=== PATIENT | female | born 1985 | race Caucasian/White ===

== ENCOUNTER → 2018-06-30 | Outpatient (CLI) | payer BC ==
[~2018-06-30] MED LIST: ACET-789 PO; IBUP-1773 PO
--- NOTE | 2018-06-30 10:38 | Diagnostic Imaging Report ---
PROCEDURE: US Gallbladder. TECHNIQUE: Multiple real-time grayscale images were obtained over the right upper quadrant in various projections. INDICATION: Right upper quadrant pain and nausea. FINDINGS: The liver is normal in size at 13 cm. There is a circumscribed hyperechoic mass in the right lobe of the liver measuring 18 mm, suggestive of a hemangioma. The portal vein is patent and shows normal direction of flow. Gallbladder is without stones or sludge. No wall thickening or biliary duct dilatation is seen. The visualized pancreas is unremarkable. Right kidney is unremarkable. No stones or hydronephrosis is seen. There is no ascites. IMPRESSION: 1. No evidence of cholelithiasis or acute cholecystitis. 2. 18 mm hyperechoic mass in the right lobe of the liver, most suggestive of a hemangioma. Followup to confirm stability could be performed. Dictated by: Dictated on workstation # [id number]
== END ==
LOC: RAD 08:20
PROVIDERS: ATTEND Surgery
DX: R16.0 Hepatomegaly, not elsewhere classified (principal); R10.11 Right upper quadrant pain; R11.2 Nausea with vomiting, unspecified
CPT/HCPCS: 76705

== ENCOUNTER → 2018-07-10 | Outpatient (CLI) | payer BC ==
[~2018-07-10] MED LIST changes: +CATHETER FLUSH 10 ML SYR IV PRN
--- NOTE | 2018-07-10 12:32 | Diagnostic Imaging Report ---
INDICATION: Right upper quadrant pain with nausea and vomiting. TECHNIQUE: Patient was administered 5.4 mCi of technetium-99m Choletec, and imaging over the abdomen was performed. At 45 minutes, patient ingested 8 ounces of Ensure, and gallbladder ejection fraction was calculated. FINDINGS: Normal homogeneous uptake of activity throughout the liver is seen. There is prompt excretion of activity into the common duct and passage into the small bowel. Normal passage of activity into the gallbladder is also noted. Gallbladder ejection fraction is slightly low at 32%. Normal values are 33% or greater. IMPRESSION: 1. No evidence of cystic duct or common bile duct obstruction. 2. Slightly low gallbladder ejection fraction of 32%. Dictated by: Dictated on workstation # [id number]
== END ==
LOC: CARD 09:21
PROVIDERS: ATTEND Surgery
DX: R10.11 Right upper quadrant pain (principal); R11.2 Nausea with vomiting, unspecified
CPT/HCPCS: 78227

== ENCOUNTER 2018-07-26 05:48 | Outpatient (CLI) | payer BC ==
[~2018-07-26] VITALS: Ht 154.9 cm; Wt 54.4 kg
[~2018-07-26 05:48] MED LIST changes: -CATHETER FLUSH 10 ML SYR IV PRN
[2018-07-26] MEDS ORDERED: PANT40TA2 PO (11:38)
== END 2018-07-26 11:42 | disposition home or self-care (01) ==
LOC: PREOP 05:48
PROVIDERS: ATTEND Surgery
DX: Z01.818 Encounter for other preprocedural examination (principal)

== ENCOUNTER 2018-07-28 06:52 | Day surgery (SDC) | payer BC ==
[~2018-07-28] VITALS: Ht 154.9 cm; Wt 54.4 kg
[2018-07-28] VITALS (11 sets, daily range): BP systolic 88–124; BP diastolic 51–89
[~2018-07-28 06:52] MED LIST changes: +PANT40TA2 PO
--- OUTSIDE RECORDS SUMMARY | 2018-07-28 06:59 | XMS REPORT | CCD ---
Author Author Michelle Camara Organization Linda Corado MD, [facility] Address [address] [place] [address] Phone Care Team Providers Care Vat House Supervisor Name Role Phone PP Unavailable CCM Unavailable Summary Purpose Interface Exchange Insurance Providers Payer name Policy type / Coverage type Covered green party ID Effective Begin Date Effective End Date Blue Cross Blue Shield [facility] Blue Cross/Blue Shield [id number] 2017 Unknown Family history Father Diagnosis Age At Onset Diabetes mellitus Type 2 Unknown Hypertension Unknown Hyperlipidemia Unknown Social History Social History Element Codes Description Effective Dates Marital status Unknown jazlyn 05/11/2017 Number of children Unknown 0 3 step kids 05/11/[address]: 940820419 Never smoker 05/11/2017 Alcohol history Unknown occasionally drinks alcohol 05/11/2017 Allergies, Adverse Reactions, Alerts Substance Reaction Codes Entered Date Inactivated Date Status Mucinex RASH RxNorm: 5032 05/11/2017 No Inactive Date Active Past Medical History Illness Codes Condition Status Onset Date Resolved Date Acute laryngopharyngitis ICD-9: 465.0 ICD-10: J06.0 Active 06/06/2018 Unknown Other allergic rhinitis ICD-9: 477.8 ICD-10: J30.89 Active 06/06/2018 Unknown Encounter for general adult medical examination with abnormal findings ICD-9: V70.0 ICD-10: Z00.01 Active 05/02/2018 Unknown Spontaneous ecchymoses ICD-9: 782.7 ICD-10: R23.3 Active 05/02/2018 Unknown Diarrhea, unspecified ICD-9: 787.91 ICD-10: R19.7 Active 05/11/2017 Unknown Gastro-esophageal reflux disease without esophagitis ICD-9: 530.81 ICD-10: K21.9 Active 05/11/2017 Unknown Problems Condition Codes Effective Dates Condition Status Acute laryngopharyngitis ICD-9: 465.0 ICD-10: J06.0 06/06/2018 Active Other allergic rhinitis ICD-9: 477.8 ICD-10: J30.89 06/06/2018 Active Encounter for general adult medical examination with abnormal findings ICD-9: V70.0 ICD-10: Z00.01 05/02/2018 Active Spontaneous ecchymoses ICD-9: 782.7 ICD-10: R23.3 05/02/2018 Active Diarrhea, unspecified ICD-9: 787.91 ICD-10: R19.7 05/11/2017 Active Gastro-esophageal reflux disease without esophagitis ICD-9: 530.81 ICD-10: K21.9 05/11/2017 Active Medications Medication Codes Instructions Start Date Stop Date Status Fill Instructions Tessalon Perles 100 mg capsule RxNorm: 462805 2 Capsule(s) PO TID as needed cough 06/07/2018 06/11/2018 Inactive Zithromax Z-Matt 250 mg tablet RxNorm: 735812 Tablet(s) PO UD No Stop Date Active Kenalog 40 mg/mL suspension for injection RxNorm: 2493051 Milliliter(s) Inj 06/06/2018 06/06/2018 Inactive Carafate 1 gram tablet RxNorm: 737931 1 Tablet(s) PO AC & HS 06/27/2018 Active Protonix 40 mg tablet,delayed release RxNorm: 076902 1 Tablet(s) PO daily 05/29/2018 08/26/2018 Active Protonix 40 mg tablet,delayed release RxNorm: 379745 1 Tablet(s) PO daily 05/29/2018 05/28/2018 Inactive Carafate 1 gram tablet RxNorm: 306831 1 Tablet(s) PO AC & HS as needed 12/26/2017 01/04/2018 Inactive Prilosec OTC 20 mg tablet,delayed release RxNorm: 775607 1 Tablet(s) PO daily 05/12/2017 05/28/2018 Inactive Carafate 1 gram tablet RxNorm: 654018 1 Tablet(s) PO AC & HS as needed 05/12/2017 05/21/2017 Inactive Carafate 1 gram tablet RxNorm: 566889 1 Tablet(s) PO AC & HS as needed 05/11/2017 05/11/2017 Inactive Medication Administered Medication Codes Instructions Start Date Status Kenalog 40 mg/mL suspension for injection RxNorm: 4487600 Milliliter 06/06/2018 No longer Active Immunizations No Immunization data Assessments Condition Codes Effective Dates Acute laryngopharyngitis ICD-10: J06.0 ICD-9: 465.0 06/06/2018 Other allergic rhinitis ICD-10: J30.89 ICD-9: 477.8 06/06/2018 Spontaneous ecchymoses ICD-10: R23.3 ICD-9: 782.7 05/02/2018 Encounter for general adult medical examination with abnormal findings ICD-10: Z00.01 ICD-9: V70.0 05/02/2018 Gastro-esophageal reflux disease without esophagitis ICD-10 : K21.9 ICD-9: 530.81 05/11/2017 Diarrhea, unspecified ICD-10: R19.7 ICD-9: 787.91 05/11/2017 Reason For Visit Reason For Visit Effective Dates Notes sinus congestion 06/06/2018 rash 05/02/2018 abdominal pain 05/11/2017 Results Observation Observation Code Item Item Code Result Date Cbc With Differential Ord2 WBC 5.31 K/ul 05/17/2018 Cbc With Differential Ord2 RBC 4.40 M/ul 05/17/2018 Cbc With Differential Ord2 HGB 14.1 g/dl 05/17/2018 Cbc With Differential Ord2 HCT 40.5 % 05/17/2018 Cbc With Differential Ord2 Neut% 59.5 % 05/17/2018 Cbc With Differential Ord2 MCV 92.0 fl 05/17/2018 Cbc With Differential Ord2 Lymph% 30.5 % 05/17/2018 Cbc With Differential Ord2 MCH 32.0 pg 05/17/2018 Cbc With Differential Ord2 Kings% 8.7 % 05/17/2018 Cbc With Differential Ord2 MCHC 34.8 pg 05/17/2018 Cbc With Differential Ord2 Eos% 0.9 % 05/17/2018 Cbc With Differential Ord2 PLT 191 K/ul 05/17/2018 Cbc With Differential Ord2 Baso% 0.4 % 05/17/2018 Cbc With Differential Ord2 RDW 12.5 % 05/17/2018 Cbc With Differential Ord2 Neut ABS# 3.16 K/ul 05/17/2018 Cbc With Differential Ord2 Lymph ABS# 1.62 K/ul 05/17/2018 Cbc With Differential Ord2 Kings ABS# 0.5 K/ul 05/17/2018 Cbc With Differential Ord2 Eos ABS# 0.1 K/ul 05/17/2018 Cbc With Differential Ord2 Baso ABS# 0.0 K/ul 05/17/2018 Tsh Ord6 TSH (3rd IS) 1.15 uIU/mL 05/02/2018 Comp Metabolic Bdf375 NA 137 mEq/L 05/02/2018 Comp Metabolic Aln932 K 4.2 mEq/L 05/02/2018 Comp Metabolic Wyn342 CL 105 mEq/L 05/02/2018 Comp Metabolic Gck586 CO2 27.0 mEq/L 05/02/2018 Comp Metabolic Fai787 ANION GAP 9 05/02/2018 Comp Metabolic Fsn801 GLUCOSE 96 mg/dL 05/02/2018 Comp Metabolic Smg338 Creat 0.6 mg/dL 05/02/2018 Comp Metabolic Vfe514 eGFR 113 ml/min/1.73m2 05/02/2018 Comp Metabolic Tgg676 BUN 8 mg/dL 05/02/2018 Comp Metabolic Vuw307 B/C Ratio 12.5 Ratio 05/02/2018 Comp Metabolic Yaf980 CALCIUM 9.3 mg/dL 05/02/2018 Comp Metabolic Tlx416 ALK PHOS 50 U/L 05/02/2018 Comp Metabolic Dtn248 AST(SGOT) 14 U/L 05/02/2018 Comp Metabolic Chu055 ALT(SGPT) 10 U/L 05/02/2018 Comp Metabolic Hgh952 BILI T 0.8 mg/dL 05/02/2018 Comp Metabolic Pub344 ALBUMIN 4.1 g/dL 05/02/2018 Comp Metabolic Vze636 TPRO 6.8 g/dL 05/02/2018 Comp Metabolic Mqo860 GLOB 2.7 g/dL 05/02/2018 Comp Metabolic Bzv086 A/G Ratio 1.5 Ratio 05/02/2018 Comp Metabolic Uvr195 Osmo 272 mOsmo 05/02/2018 Cbc With Differential Ord2 WBC 4.91 K/ul 05/02/2018 Cbc With Differential Ord2 RBC 4.24 M/ul 05/02/2018 Cbc With Differential Ord2 HGB 13.4 g/dl 05/02/2018 Cbc With Differential Ord2 HCT 38.9 % 05/02/2018 Cbc With Differential Ord2 Neut% 55.8 % 05/02/2018 Cbc With Differential Ord2 MCV 91.7 fl 05/02/2018 Cbc With Differential Ord2 Lymph% 36.7 % 05/02/2018 Cbc With Differential Ord2 MCH 31.6 pg 05/02/2018 Cbc With Differential Ord2 Kings% 6.7 % 05/02/2018 Cbc With Differential Ord2 MCHC 34.4 pg 05/02/2018 Cbc With Differential Ord2 Eos% 0.6 % 05/02/2018 Cbc With Differential Ord2 PLT 209 K/ul 05/02/2018 Cbc With Differential Ord2 Baso% 0.2 % 05/02/2018 Cbc With Differential Ord2 RDW 12.6 % 05/02/2018 Cbc With Differential Ord2 Neut ABS# 2.74 K/ul 05/02/2018 Cbc With Differential Ord2 Lymph ABS# 1.80 K/ul 05/02/2018 Cbc With Differential Ord2 Kings ABS# 0.3 K/ul 05/02/2018 Cbc With Differential Ord2 Eos ABS# 0.0 K/ul 05/02/2018 Cbc With Differential Ord2 Baso ABS# 0.0 K/ul 05/02/2018 Review of Systems System Result Effective Dates Constitutional recent illness 06/06/2018 Constitutional chills 06/06/2018 Constitutional No diaphoresis 06/06/2018 Constitutional fever 06/06/2018 Eyes No eye erythema 06/06/2018 Ears/Nose/Throat/Neck nasal allergies 02/2019 Ears/Nose/Throat/Neck nasal discharge 02/2019 Ears/Nose/Throat/Neck postnasal drip 02/2019 Ears/Nose/Throat/Neck sinus congestion Ears/Nose/Throat/Neck sore throat 2018 Cardiovascular No chest pain/pressure 02/2019 Cardiovascular No dyspnea 06/06/2018 Respiratory No chest congestion 2018 Respiratory cough 06/06/2018 Respiratory No dyspnea 06/06/2018 Gastrointestinal No constipation 2018 Gastrointestinal No diarrhea 06/06/2018 Gastrointestinal No nausea 06/06/2018 Gastrointestinal No vomiting 06/06/2018 Dermatologic No rash 06/06/2018 Neurologic No alteration of consciousness 06/06/2018 Neurologic No mental status change 2018 Constitutional No recent illness 2018 Constitutional No chills 05/02/2018 Constitutional No diaphoresis 05/02/2018 Constitutional No fever 05/02/2018 Eyes No eye erythema 05/02/2018 Ears/Nose/Throat/Neck No nasal allergies 05/02/2018 Ears/Nose/Throat/Neck No nasal discharge 05/02/2018 Cardiovascular No chest pain/pressure 07/2018 Cardiovascular No dyspnea 05/02/2018 Respiratory No chest congestion 2018 Respiratory No cough 05/02/2018 Gastrointestinal No abdominal pain 2018 Gastrointestinal No constipation 2018 Gastrointestinal No diarrhea 05/02/2018 Gastrointestinal No hematochezia 2018 Gastrointestinal No melena 05/02/2018 Gastrointestinal No nausea 05/02/2018 Gastrointestinal No vomiting 05/02/2018 Musculoskeletal No joint complaint 2018 Dermatologic No rash 05/02/2018 Neurologic No alteration of consciousness 05/02/2018 Neurologic No mental status change 2018 Constitutional No recent illness 2017 Constitutional No chills 05/11/2017 Constitutional No diaphoresis 05/11/2017 Constitutional No fever 05/11/2017 Eyes No eye erythema 05/11/2017 Ears/Nose/Throat/Neck No nasal discharge 05/11/2017 Ears/Nose/Throat/Neck No nasal allergies 05/11/2017 Cardiovascular No chest pain/pressure Cardiovascular No dyspnea 05/11/2017 Cardiovascular No edema 05/11/2017 Respiratory No cough 05/11/2017 Respiratory No chest congestion 2017 Respiratory No dyspnea 05/11/2017 Gastrointestinal abdominal pain 2017 Gastrointestinal No constipation 2017 Gastrointestinal diarrhea 05/11/2017 Gastrointestinal gastroesophageal reflux 05/11/2017 Gastrointestinal No vomiting 05/11/2017 Gastrointestinal No nausea 05/11/2017 Gastrointestinal No melena 05/11/2017 Gastrointestinal No hematochezia 2017 Musculoskeletal No joint complaint 2017 Dermatologic No rash 05/11/2017 Neurologic No alteration of consciousness 05/11/2017 Neurologic No mental status change 2017 Physical Exam Exam Name System Name Item Name Status Result Effective Dates Notes Full Exam - ENT Constitutional general appearance Overall: well nourished 06/06/2018 None Full Exam - ENT Constitutional general appearance Overall: well developed 06/06/2018 None Full Exam - ENT Constitutional general appearance Overall: in no acute distress 06/06/2018 None Full Exam - ENT Ears/Nose/Throat otoscopic exam Overall: external auditory canals normal 06/06/2018 None Full Exam - ENT Ears/Nose/Throat otoscopic exam Left tympanic membrane: air -fluid level 06/06/2018 None Full Exam - ENT Ears/Nose/Throat otoscopic exam Right tympanic membrane: air-fluid level 06/06/2018 None Full Exam - ENT Ears/Nose/Throat lips/ teeth/gingiva Overall: benign lips 06/06/2018 None Full Exam - ENT Ears/Nose/Throat oropharynx Overall: oral mucosa clear 06/06/2018 None Full Exam - ENT Ears/Nose/Throat oropharynx Posterior Pharynx: clear post nasal drainage 06/06/2018 None Full Exam - ENT Ears/Nose/Throat oropharynx Posterior Pharynx: erythema 06/06/2018 None Full Exam - ENT Respiratory inspection Overall: no retractions 06/06/2018 None Full Exam - ENT Respiratory inspection Overall: normal rate 02/2019 None Full Exam - ENT Respiratory auscultation Overall: breath sounds clear bilaterally 06/06/2018 None Full Exam - ENT Cardiovascular auscultation of heart Rate: normal rate 06/06/2018 None Full Exam - ENT Cardiovascular auscultation of heart Rhythm: regular rhythm 06/06/2018 None Full Exam - ENT Lymphatic palpation of lymph nodes Overall: anterior cervical chain benign 06/06/2018 None Full Exam - ENT Lymphatic palpation of lymph nodes Overall: posterior cervical chain benign 06/06/2018 None Full Exam - ENT Neurologic mood and affect Overall: normal mood 06/06/2018 None Full Exam - ENT Neurologic mood and affect Overall: normal affect 06/06/2018 None Full Exam - ENT Neurologic orientation Overall: oriented to person, place and time 06/06/2018 None Full Exam - General 1994 Constitutional general appearance Overall: well developed 05/02/2018 None Full Exam - General 1994 Constitutional general appearance Overall: in no acute distress 05/02/2018 None Full Exam - General 1994 Constitutional general appearance Overall: well nourished 05/02/2018 None Full Exam - General 1994 Eyes conjunctiva /eyelids Overall: conjunctiva clear 05/02/2018 None Full Exam - General 1994 Eyes conjunctiva /eyelids Overall: cornea clear 05/02/2018 None Full Exam - General 1994 Eyes conjunctiva /eyelids Overall: eyelids normal 05/02/2018 None Full Exam - General 1994 Eyes pupils and irises Overall: pupils equal, round, reactive to light and accomodation 05/02/2018 None Full Exam - General 1994 Ears/Nose/Throat otoscopic exam Overall: external auditory canals clear 05/02/2018 None Full Exam - General 1994 Ears/Nose/Throat otoscopic exam Overall: tympanic membranes clear 05/02/2018 None Full Exam - General 1994 Ears/Nose/Throat lips/teeth/gingiva Overall: benign lips 05/02/2018 None Full Exam - General 1994 Ears/Nose/Throat oral cavity/pharynx/larynx Overall: oral mucosa clear 05/02/2018 None Full Exam - General 1994 Ears/Nose/Throat oral cavity/pharynx/larynx Overall: oropharyngeal mucosa clear 05/02/2018 None Full Exam - General 1994 Respiratory auscultation Overall: breath sounds clear bilaterally 05/02/2018 None Full Exam - General 1994 Respiratory respiratory effort/rhythm Overall: no retractions 05/02/2018 None Full Exam - General 1994 Respiratory respiratory effort/rhythm Overall: normal rate 05/02/2018 None Full Exam - General 1994 Cardiovascular extremities Overall: no clubbing 05/02/2018 None Full Exam - General 1994 Cardiovascular auscultation of heart Overall: regular rate 05/02/2018 None Full Exam - General 1994 Cardiovascular auscultation of heart Overall: normal heart sounds 05/02/2018 None Full Exam - General 1994 Abdomen abdominal exam Overall: no tenderness 05/02/2018 None Full Exam - General 1994 Abdomen abdominal exam Overall: normal bowel sounds 05/02/2018 None Full Exam - General 1994 Musculoskeletal gait and station Overall: normal gait 05/02/2018 None Full Exam - General 1994 Musculoskeletal gait and station Overall: normal station 05/02/2018 None Full Exam - General 1994 Musculoskeletal head and neck Overall: head atraumatic 05/02/2018 None Full Exam - General 1994 Neurologic cranial nerves Overall: crainial nerves 2 - 12 grossly intact 05/02/2018 None Full Exam - General 1994 Psychiatric orientation/consciousness Overall: oriented to person, place and time 05/02/2018 None Full Exam - General 1994 Psychiatric mood and affect Overall: normal mood and affect 05/02/2018 None Full Exam - General 1994 Psychiatric appearance Overall: well-groomed, good eye contact 05/02/2018 None Full Exam - General 1994 Integument inspection of skin Location: left leg 05/02/2018 lateral thigh - healing ecchymosis Full Exam - General 1994 Constitutional general appearance Overall: well developed 05/11/2017 None Full Exam - General 1994 Constitutional general appearance Overall: in no acute distress 05/11/2017 None Full Exam - General 1994 Constitutional general appearance Overall: well nourished 05/11/2017 None Full Exam - General 1994 Eyes conjunctiva /eyelids Overall: conjunctiva clear 05/11/2017 None Full Exam - General 1994 Eyes conjunctiva /eyelids Overall: eyelids normal 05/11/2017 None Full Exam - General 1994 Eyes conjunctiva /eyelids Overall: cornea clear 05/11/2017 None Full Exam - General 1994 Eyes pupils and irises Overall: pupils equal, round, reactive to light and accomodation 05/11/2017 None Full Exam - General 1994 Ears/Nose/Throat otoscopic exam Overall: tympanic membranes clear 05/11/2017 None Full Exam - General 1994 Ears/Nose/Throat otoscopic exam Overall: external auditory canals clear 05/11/2017 None Full Exam - General 1994 Ears/Nose/Throat lips/teeth/gingiva Overall: benign lips 05/11/2017 None Full Exam - General 1994 Ears/Nose/Throat oral cavity/pharynx/larynx Overall: oral mucosa clear 05/11/2017 None Full Exam - General 1994 Ears/Nose/Throat oral cavity/pharynx/larynx Overall: oropharyngeal mucosa clear 05/11/2017 None Full Exam - General 1994 Respiratory respiratory effort/rhythm Overall: normal rate 05/11/2017 None Full Exam - General 1994 Respiratory respiratory effort/rhythm Overall: no retractions 05/11/2017 None Full Exam - General 1994 Respiratory auscultation Overall: breath sounds clear bilaterally 05/11/2017 None Full Exam - General 1994 Cardiovascular auscultation of heart Overall: regular rate 05/11/2017 None Full Exam - General 1994 Cardiovascular auscultation of heart Overall: normal heart sounds 05/11/2017 None Full Exam - General 1994 Cardiovascular extremities Overall: no clubbing 05/11/2017 None Full Exam - General 1994 Abdomen abdominal exam Overall: normal bowel sounds 05/11/2017 None Full Exam - General 1994 Abdomen abdominal exam Epigastric: tender to palpation 05/11/2017 None Full Exam - General 1994 Abdomen abdominal exam Epigastric: dull pain 05/11/2017 None Full Exam - General 1994 Abdomen abdominal exam Epigastric: no guarding 05/11/2017 None Full Exam - General 1994 Abdomen abdominal exam Epigastric: no rebound tenderness 05/11/2017 None Full Exam - General 1994 Abdomen abdominal exam Epigastric: soft 05/11/2017 None Full Exam - General 1994 Lymphatic neck nodes Overall: posterior cervical chain benign 05/11/2017 None Full Exam - General 1994 Lymphatic neck nodes Overall: anterior cervical chain benign 05/11/2017 None Full Exam - General 1994 Musculoskeletal head and neck Overall: head atraumatic 05/11/2017 None Full Exam - General 1994 Musculoskeletal gait and station Overall: normal station 05/11/2017 None Full Exam - General 1994 Musculoskeletal gait and station Overall: normal gait 05/11/2017 None Full Exam - General 1994 Neurologic cranial nerves Overall: crainial nerves 2 - 12 grossly intact 05/11/2017 None Full Exam - General 1994 Psychiatric orientation/consciousness Overall: oriented to person, place and time 05/11/2017 None Full Exam - General 1994 Psychiatric mood and affect Overall: normal mood and affect 05/11/2017 None Full Exam - General 1994 Psychiatric appearance Overall: well-groomed, good eye contact 05/11/2017 None Procedures Procedure Codes Date TRIAMCINOLONE ACET INJ NOS CPT-4: J3301 06/06/2018 Vital Signs Date Vital 06/06/2018 Blood Pressure 1: 104/64 Code : 8480-6 BMI: 24.4 Code : 88229-0 Heart Rate 1 : 83 bpm Height: 5'1" SpO2: 98% Temperature: 36.7 (C) / 98.1 (F) Weight: 129 lbs 05/02/2018 Blood Pressure 1: 124/74 Code : 8480-6 BMI: 24.4 Code : 63887-6 Heart Rate 1 : 81 bpm Height: 5'1" SpO2: 99% Weight: 129 lbs 05/11/2017 Blood Pressure 1: 110/62 Code : 8480-6 BMI: 22.7 Code : 48132-0 Heart Rate 1 : 98 bpm Height: 5'1" SpO2: 99% Weight: 120 lbs Functional Status No Functional Status data History of Present Illness Symptom Name Status Result Effective Date Notes Location frontal sinuses 06/06/2018 None Quality constant 02/2019 None Quality fullness 02/2019 None Quality pressure 02/2019 None Onset and Resolution sudden in onset 06/06/2018 None Onset of Symptom 3 days ago 06/06/2018 None Location in the throat 06/06/2018 None Quality constant 02/2019 None Quality hacking 06/06 None Quality productive None Onset and Resolution sudden in onset 06/06/2018 None Onset of Symptom 2 days ago 06/06/2018 None Location diffusely None Quality aching 2018 None Quality burning 06/06 None Onset and Resolution sudden in onset 06/06/2018 None Onset of Symptom 3 days ago 06/06/2018 None Frequency of Episodes daily 06/06/2018 None Location-Major on the head 05/02/2018 None Color red 05/02/2018 None Onset of Symptom 3 months ago 05/02/2018 None Location on the left leg 05/02/2018 None Quality intermittent 05/02/2018 None Onset and Resolution sudden in onset 05/02/2018 None Onset of Symptom 1 weeks ago 05/02/2018 None abdominal pain Location diffusely 05/11/2017 None abdominal pain Quality intermittent 05/11/2017 None abdominal pain Quality cramping 05/11/2017 None abdominal pain Onset and Resolution sudden in onset 05/11/2017 None abdominal pain Onset of Symptom 2 months ago 05/11/2017 None diarrhea Quality intermittent 05/11/2017 None diarrhea Quality loose 05/11/2017 None diarrhea Onset and Resolution sudden in onset 05/11/2017 None diarrhea Onset of Symptom 2 months ago 05/11/2017 None Advance Directives No Advance Directive data Encounters Encounter Performer Location Codes Date EST. PATIENT, LEVEL III Diagnosis: Acute laryngopharyngitis[ICD10: J06.0] Diagnosis: Other allergic rhinitis[ICD10: J30.89] [facility] CPT-4: 30382 06/06/2018 ([id number]) PREV VISIT EST AGE 18-39 Diagnosis: Encounter for general adult medical examination with abnormal findings[ICD10: Z00.01] Diagnosis: Spontaneous ecchymoses[ICD10: R23.3] [facility] CPT-4: 73506 05/02/2018 OFFICE VISIT, NEW - LEVEL 3 Diagnosis: Gastro-esophageal reflux disease without esophagitis[ICD10: K21.9] Diagnosis: Diarrhea, unspecified[ICD10: R19.7] [facility] CPT-4: 46156 05/11/2017 Plan of Care Planned Activity Notes Codes Status Date Visit Plan: URI - Pt advised to increase fluids, vitamin C. Discussed natural and expected course of this diagnosis and need to alert me if symptoms do not follow expected course, or if any worse. RX sent to patient' s pharmacy. Allergies - chronic - recommended pt to use allergy medication as prescribed. Pt has been counseled as to the appropriate use of the medication. Pt to call if allergy symptoms are not controlled with the medication. If using nasal spray, instructions as follows: Nasal spray- use twice daily, one spray per nostril twice daily, after 30 minutes, rinse out nose with saline spray.. Use opposite hand per nostril to spray in the nasal steroid allergy spray. 06/06/2018 Appointment: Michelle Camara WPtel: [facility] [address] (30 min) Complex 06/06/2018 Patient Education: Patient Medication Summary Completed 06/06/2018 Visit Plan: Well Adult - pt was counseled about diet, exercise, and encouraged to follow a heart healthy diet and increase activity level. The patient was instructed to RTC yearly for well adult exams and PRN for acute illnesses. The pt was also instructed to have yearly labs for check of cholesterol, thyroid, chem panel, CBC, and renal functioning. abnormal bruising - will check labs and treat as indicated 05/02/2018 Appointment: Michelle Camara WPtel: [address] [place] [address] (30 min) Complex 05/02/2018 Patient Education: Patient Medication Summary Completed 05/02/2018 Visit Plan: Esophageal Reflux - the patient has been counseled against excessive intake of caffeine, spicy foods, peppermint, and cinnamon - all of which can exacerbate esophageal reflux. The patient is to take medications as prescribed and call the office if the symptoms are not improving. Diarrhea - recommended bland diet, low fat diet, start on probiotic, and rehydrate with gatorade-like product. Pt to call if feeling worse, diarrhea becomes bloody, or does not improve with above recommendations. Pt to call for acute worsening of stomach upset or stomach pain. 05/11/2017 Appointment: Michelle Camara WPtel: [id number] New Patient 05/11/2017 Patient Education: Patient Medication Summary Completed 05/11/2017 Instructions Comment zantac 150mg twice a day. Esophageal Reflux - the patient has been counseled against excessive intake of caffeine, spicy foods, peppermint , and cinnamon - all of which can exacerbate esophageal reflux. The patient is to take medications as prescribed and call the office if the symptoms are not improving. Diarrhea - recommended bland diet, low fat diet, start on probiotic, and rehydrate with gatorade-like product. Pt to call if feeling worse, diarrhea becomes bloody, or does not improve with above recommendations. Pt to call for acute worsening of stomach upset or stomach pain. . URI - Pt advised to increase fluids, vitamin C. Discussed natural and expected course of this diagnosis and need to alert me if symptoms do not follow expected course, or if any worse. RX sent to patient's pharmacy. Allergies - chronic - recommended pt to use allergy medication as prescribed. Pt has been counseled as to the appropriate use of the medication. Pt to call if allergy symptoms are not controlled with the medication. If using nasal spray, instructions as follows: Nasal spray- use twice daily, one spray per nostril twice daily, after 30 minutes, rinse out nose with saline spray.. Use opposite hand per nostril to spray in the nasal steroid allergy spray. . Well Adult - pt was counseled about diet, exercise, and encouraged to follow a heart healthy diet and increase activity level. The patient was instructed to RTC yearly for well adult exams and PRN for acute illnesses. The pt was also instructed to have yearly labs for check of cholesterol, thyroid, chem panel, CBC, and renal functioning. abnormal bruising - will check labs and treat as indicated
--- OUTSIDE RECORDS SUMMARY | 2018-07-28 06:59 | XMS REPORT | CCD ---
Author Author Michelle Camara Organization Linda Corado MD, [facility] Address [address] [place] [address] Phone Care Team Providers Care Collar Band Creaser Name Role Phone PP Unavailable CCM Unavailable Summary Purpose Interface Exchange Insurance Providers Payer name Policy type / Coverage type Covered libertarian ID Effective Begin Date Effective End Date Blue Cross Blue Shield [facility] Blue Cross/Blue Shield [id number] 2017 Unknown Family history Father Diagnosis Age At Onset Diabetes mellitus Type 2 Unknown Hypertension Unknown Hyperlipidemia Unknown Social History Social History Element Codes Description Effective Dates Marital status Unknown jazlyn 05/11/2017 Number of children Unknown 0 3 step kids 05/11/[address]: 125864567 Never smoker 05/11/2017 Alcohol history Unknown occasionally [...] Instructions Tessalon Perles 100 mg capsule RxNorm: 252498 2 Capsule(s) PO TID as needed cough 06/07/2018 06/11/2018 Active Zithromax Z-Matt 250 mg tablet RxNorm: 245527 Tablet(s) PO UD No Stop Date Active Kenalog 40 mg/mL suspension for injection RxNorm: 0190530 Milliliter(s) Inj 06/06/2018 06/06/2018 Inactive Carafate 1 gram tablet RxNorm: 887171 1 Tablet(s) PO AC & HS 06/27/2018 Active Protonix 40 mg tablet,delayed release RxNorm: 169342 1 Tablet(s) PO daily 05/29/2018 08/26/2018 Active Protonix 40 mg tablet,delayed release RxNorm: 144098 1 Tablet(s) PO daily 05/29/2018 05/28/2018 Inactive Carafate 1 gram tablet RxNorm: 306037 1 Tablet(s) PO AC & HS as needed 12/26/2017 01/04/2018 Inactive Prilosec OTC 20 mg tablet,delayed release RxNorm: 084339 1 Tablet(s) PO daily 05/12/2017 05/28/2018 Inactive Carafate 1 gram tablet RxNorm: 246497 1 Tablet(s) PO AC & HS as needed 05/12/2017 05/21/2017 Inactive Carafate 1 gram tablet RxNorm: 073478 1 Tablet(s) PO AC & HS as needed 05/11/2017 05/11/2017 Inactive Medication Administered Medication Codes Instructions Start Date Status Kenalog 40 mg/mL suspension for injection RxNorm: 9579662 Milliliter 06/06/2018 No longer Active Immunizations No [...] 32.0 pg 05/17/2018 Cbc With Differential Ord2 [place]% 8.7 % 05/17/2018 Cbc With Differential Ord2 [...] 1.62 K/ul 05/17/2018 Cbc With Differential Ord2 [place] ABS# 0.5 K/ul 05/17/2018 Cbc With Differential Ord2 Eos ABS# 0.1 K/ul 05/17/2018 Cbc With Differential Ord2 Baso ABS# 0.0 K/ul 05/17/2018 Tsh Ord6 TSH (3rd IS) 1.15 uIU/mL 05/02/2018 Comp Metabolic Ati019 NA 137 mEq/L 05/02/2018 Comp Metabolic Bsk689 K 4.2 mEq/L 05/02/2018 Comp Metabolic Vti470 CL 105 mEq/L 05/02/2018 Comp Metabolic Nka584 CO2 27.0 mEq/L 05/02/2018 Comp Metabolic Erc979 ANION GAP 9 05/02/2018 Comp Metabolic Vop477 GLUCOSE 96 mg/dL 05/02/2018 Comp Metabolic Kbo989 Creat 0.6 mg/dL 05/02/2018 Comp Metabolic Esr469 eGFR 113 ml/min/1.73m2 05/02/2018 Comp Metabolic Idn041 BUN 8 mg/dL 05/02/2018 Comp Metabolic Rnk138 B/C Ratio 12.5 Ratio 05/02/2018 Comp Metabolic Uxd661 CALCIUM 9.3 mg/dL 05/02/2018 Comp Metabolic Sla805 ALK PHOS 50 U/L 05/02/2018 Comp Metabolic Ohm402 AST(SGOT) 14 U/L 05/02/2018 Comp Metabolic Tgc824 ALT(SGPT) 10 U/L 05/02/2018 Comp Metabolic Jtb009 BILI T 0.8 mg/dL 05/02/2018 Comp Metabolic Zes010 ALBUMIN 4.1 g/dL 05/02/2018 Comp Metabolic Kha214 TPRO 6.8 g/dL 05/02/2018 Comp Metabolic Rnp448 GLOB 2.7 g/dL 05/02/2018 Comp Metabolic Fns519 A/G Ratio 1.5 Ratio 05/02/2018 Comp Metabolic Bdm365 Osmo 272 mOsmo 05/02/2018 Cbc With Differential [...] 31.6 pg 05/02/2018 Cbc With Differential Ord2 [place]% 6.7 % 05/02/2018 Cbc With Differential Ord2 [...] 1.80 K/ul 05/02/2018 Cbc With Differential Ord2 [place] ABS# 0.3 K/ul 05/02/2018 Cbc With Differential [...] Code : 8480-6 BMI: 24.4 Code : 35809-1 Heart Rate 1 : 83 bpm Height: 5'1" SpO2: 98% Temperature: 36.7 (C) / 98.1 (F) Weight: 129 lbs 05/02/2018 Blood Pressure 1: 124/74 Code : 8480-6 BMI: 24.4 Code : 78154-6 Heart Rate 1 : 81 bpm Height: 5'1" SpO2: 99% Weight: 129 lbs 05/11/2017 Blood Pressure 1: 110/62 Code : 8480-6 BMI: 22.7 Code : 42544-0 Heart Rate 1 : 98 bpm Height: [...] rhinitis[ICD10: J30.89] [facility] CPT-4: 99428 06/06/2018 (93774) PREV VISIT EST AGE 18-39 Diagnosis: Encounter for general adult medical examination with abnormal findings[ICD10: Z00.01] Diagnosis: Spontaneous ecchymoses[ICD10: R23.3] [facility] CPT-4: 15584 05/02/2018 OFFICE VISIT, NEW - LEVEL 3 Diagnosis: Gastro-esophageal reflux disease without esophagitis[ICD10: K21.9] Diagnosis: Diarrhea, unspecified[ICD10: R19.7] [facility] CPT-4: 40557 05/11/2017 Plan of Care Planned Activity Notes [...] allergy spray. 06/06/2018 Appointment: Michelle Camara WPtel: [facility] [address] (30 min) Complex 06/06/2018 Patient Education: [...] as indicated 05/02/2018 Appointment: Michelle Camara WPtel: [address] [place] [address] (30 min) Complex 05/02/2018 Patient Education: Patient [...] pain. 05/11/2017 Appointment: Michelle Camara WPtel: [phone] New Patient 05/11/2017 Patient Education: Patient [...]
--- OUTSIDE RECORDS SUMMARY | 2018-07-28 07:00 | XMS REPORT | CCD ---
Author Author Michelle Camara Organization Linda Corado MD, [facility] Address [address] [place] [address] Phone Care Team Providers Care Holiday Detector Operator Name Role Phone PP Unavailable CCM Unavailable Summary Purpose Interface Exchange Insurance Providers Payer name Policy type / Coverage type Covered libertarian ID Effective Begin Date Effective End Date Blue Cross Blue [facility] Blue Cross/Blue [facility] [id number] 2017 Unknown Family history Father Diagnosis Age At Onset Diabetes mellitus Type 2 Unknown Hypertension Unknown Hyperlipidemia Unknown Social History Social History Element Codes Description Effective Dates Marital status Unknown jazlyn 05/11/2017 Number of children Unknown 0 3 step kids 05/11/[address]: 736219327 Never smoker 05/11/2017 Alcohol history Unknown occasionally drinks alcohol 05/11/2017 Allergies, Adverse Reactions, Alerts Allergies, Adverse Reactions, Alerts data not found Past Medical History Illness Codes Condition Status Onset Date Resolved Date Diarrhea, unspecified ICD-9: 787.91 ICD-10: R19.7 Active 05/11/2017 Unknown Gastro-esophageal reflux disease without esophagitis ICD-9: 530.81 ICD-10: K21.9 Active 05/11/2017 Unknown Problems Condition Codes Effective Dates Condition Status Diarrhea, unspecified ICD-9: 787.91 ICD-10: R19.7 05/11/2017 Active Gastro-esophageal reflux disease without esophagitis ICD-9: 530.81 ICD-10: K21.9 05/11/2017 Active Medications Medication Codes Instructions Start Date Stop Date Status Fill Instructions Prilosec OTC 20 mg tablet,delayed release RxNorm: 479530 1 Tablet(s) PO daily 05/12/2017 No Stop Date Active Carafate 1 gram tablet RxNorm: 773543 1 Tablet(s) PO AC & HS as needed 05/11/2017 05/20/2017 Active Medication Administered No Medication Administered data Immunizations No Immunization data Assessments Condition Codes Effective Dates Gastro-esophageal reflux disease without esophagitis ICD-10 : K21.9 ICD-9: 530.81 05/11/2017 Diarrhea, unspecified ICD-10: R19.7 ICD-9: 787.91 05/11/2017 Reason For Visit Reason For Visit Effective Dates Notes abdominal pain 05/11/2017 Results No Results data Review of Systems System Result Effective Dates Constitutional No recent illness 2017 Constitutional No [...] Result Effective Dates Notes Full Exam - General 1994 Constitutional general [...] well-groomed, good eye contact 05/11/2017 None Procedures No Procedures data Vital Signs Date Vital 05/11/2017 Blood Pressure 1: 110/62 Code : 8480-6 BMI: 22.7 Code : 10186-6 Heart Rate 1 : 98 bpm Height: 5'1" SpO2: 99% Weight: 120 lbs Functional Status No Functional Status data History of Present Illness Symptom Name Status Result Effective Date Notes abdominal pain Location diffusely 05/11/2017 None abdominal [...] data Encounters Encounter Performer Location Codes Date OFFICE VISIT, NEW - LEVEL 3 Diagnosis: Gastro-esophageal reflux disease without esophagitis[ICD10: K21.9] Diagnosis: Diarrhea, unspecified[ICD10: R19.7] [facility] CPT-4: 01658 05/11/2017 Plan of Care Planned Activity Notes Codes Status Date Visit Plan: Esophageal Reflux - the patient [...] stomach pain. 05/11/2017 Appointment: Michelle Camara WPtel: [address] [place], [place] [address] New Patient 05/11/2017 Patient Education: Patient Medication [...]
--- OUTSIDE RECORDS SUMMARY | 2018-07-28 07:00 | XMS REPORT | CCD ---
Author Author Michelle Camara MD, [facility] Address [address] [place] [address] Phone Care Team Providers Care Immersion Metalcleaner Name Role Phone PP Unavailable CCM Unavailable Summary Purpose Interface Exchange Insurance Providers Payer name Policy type / Coverage type Covered libertarian ID Effective Begin Date Effective End Date Blue Cross Blue Shield [facility] Blue Cross/Blue Shield [id number] 2017 Unknown Family history Father Diagnosis Age At Onset Diabetes mellitus Type 2 Unknown Hypertension Unknown Hyperlipidemia Unknown Social History Social History Element Codes Description Effective Dates Marital status Unknown jazlyn 05/11/2017 Number of children Unknown 0 3 step kids 05/11/[address]: 285729440 Never smoker 05/11/2017 Alcohol history Unknown occasionally drinks alcohol 05/11/2017 Allergies, Adverse Reactions, Alerts Substance Reaction Codes Entered Date Inactivated Date Status Mucinex RASH RxNorm: 5032 05/11/2017 No Inactive Date Active Past Medical History Illness Codes Condition Status Onset Date Resolved Date Encounter for general adult medical examination with abnormal findings ICD-9: V70.0 ICD-10: Z00.01 Active 05/02/2018 Unknown Spontaneous ecchymoses ICD-9: 782.7 ICD-10: R23.3 Active 05/02/2018 Unknown Diarrhea, unspecified ICD-9: 787.91 ICD-10: R19.7 Active 05/11/2017 Unknown Gastro-esophageal reflux disease without esophagitis ICD-9: 530.81 ICD-10: K21.9 Active 05/11/2017 Unknown Problems Condition Codes Effective Dates Condition Status Encounter for general adult medical examination with abnormal findings ICD-9: V70.0 ICD-10: Z00.01 05/02/2018 Active Spontaneous ecchymoses ICD-9: 782.7 ICD-10: R23.3 05/02/2018 Active Diarrhea, unspecified ICD-9: 787.91 ICD-10: R19.7 05/11/2017 Active Gastro-esophageal reflux disease without esophagitis ICD-9: 530.81 ICD-10: K21.9 05/11/2017 Active Medications Medication Codes Instructions Start Date Stop Date Status Fill Instructions Carafate 1 gram tablet RxNorm: 206633 1 Tablet(s) PO AC & HS as needed 12/26/2017 01/04/2018 Inactive Prilosec OTC 20 mg tablet,delayed release RxNorm: 400819 1 Tablet(s) PO daily 05/12/2017 No Stop Date Active Carafate 1 gram tablet RxNorm: 357564 1 Tablet(s) PO AC & HS as needed 05/12/2017 05/21/2017 Inactive Carafate 1 gram tablet RxNorm: 443775 1 Tablet(s) PO AC & HS as needed 05/11/2017 05/11/2017 Inactive Medication Administered No Medication Administered data Immunizations No Immunization data Assessments Condition Codes Effective Dates Spontaneous ecchymoses ICD-10: R23.3 ICD-9: 782.7 05/02/2018 Encounter for general adult medical examination with abnormal findings ICD-10: Z00.01 ICD-9: V70.0 05/02/2018 Gastro-esophageal reflux disease without esophagitis ICD-10 : K21.9 ICD-9: 530.81 05/11/2017 Diarrhea, unspecified ICD-10: R19.7 ICD-9: 787.91 05/11/2017 Reason For Visit Reason For Visit Effective Dates Notes rash 05/02/2018 abdominal pain 05/11/2017 Results Observation [...] 32.0 pg 05/17/2018 Cbc With Differential Ord2 [place]% 8.7 % 05/17/2018 Cbc With Differential Ord2 [...] 1.62 K/ul 05/17/2018 Cbc With Differential Ord2 [place] ABS# 0.5 K/ul 05/17/2018 Cbc With Differential Ord2 Eos ABS# 0.1 K/ul 05/17/2018 Cbc With Differential Ord2 Baso ABS# 0.0 K/ul 05/17/2018 Tsh Ord6 TSH (3rd IS) 1.15 uIU/mL 05/02/2018 Cbc With Differential Ord2 WBC 4.91 [...] 31.6 pg 05/02/2018 Cbc With Differential Ord2 [place]% 6.7 % 05/02/2018 Cbc With Differential Ord2 [...] 1.80 K/ul 05/02/2018 Cbc With Differential Ord2 [place] ABS# 0.3 K/ul 05/02/2018 Cbc With Differential Ord2 Eos ABS# 0.0 K/ul 05/02/2018 Cbc With Differential Ord2 Baso ABS# 0.0 K/ul 05/02/2018 Comp Metabolic Rqh346 NA 137 mEq/L 05/02/2018 Comp Metabolic Dzc063 K 4.2 mEq/L 05/02/2018 Comp Metabolic Tfq076 CL 105 mEq/L 05/02/2018 Comp Metabolic Pky851 CO2 27.0 mEq/L 05/02/2018 Comp Metabolic Nyv598 ANION GAP 9 05/02/2018 Comp Metabolic Dqc254 GLUCOSE 96 mg/dL 05/02/2018 Comp Metabolic Gou980 Creat 0.6 mg/dL 05/02/2018 Comp Metabolic Fqc819 eGFR 113 ml/min/1.73m2 05/02/2018 Comp Metabolic Dzs823 BUN 8 mg/dL 05/02/2018 Comp Metabolic Qhx526 B/C Ratio 12.5 Ratio 05/02/2018 Comp Metabolic Vyr973 CALCIUM 9.3 mg/dL 05/02/2018 Comp Metabolic Hpz640 ALK PHOS 50 U/L 05/02/2018 Comp Metabolic Ujx551 AST(SGOT) 14 U/L 05/02/2018 Comp Metabolic Ume494 ALT(SGPT) 10 U/L 05/02/2018 Comp Metabolic Gor474 BILI T 0.8 mg/dL 05/02/2018 Comp Metabolic Djh862 ALBUMIN 4.1 g/dL 05/02/2018 Comp Metabolic Oao174 TPRO 6.8 g/dL 05/02/2018 Comp Metabolic Zfp183 GLOB 2.7 g/dL 05/02/2018 Comp Metabolic Ptx681 A/G Ratio 1.5 Ratio 05/02/2018 Comp Metabolic Jku501 Osmo 272 mOsmo 05/02/2018 Review of Systems System Result Effective Dates Constitutional No recent illness 2018 Constitutional No [...] clear 05/02/2018 None Full Exam - General 1995 Ears/Nose/Throat lips/teeth/gingiva Overall: benign lips 05/02/2018 None Full Exam - General 1995 Ears/Nose/Throat oral cavity/pharynx/larynx Overall: oral mucosa clear 05/02/2018 None Full Exam - General 1995 Ears/Nose/Throat oral cavity/pharynx/larynx Overall: oropharyngeal mucosa clear [...] No Procedures data Vital Signs Date Vital 05/02/2018 Blood Pressure 1: 124/74 Code : 8480-6 BMI: 24.4 Code : 76858-5 Heart Rate 1 : 81 bpm Height: 5'1" SpO2: 99% Weight: 129 lbs 05/11/2017 Blood Pressure 1: 110/62 Code : 8480-6 BMI: 22.7 Code : 72434-6 Heart Rate 1 : 98 bpm Height: 5'1" SpO2: 99% Weight: 120 lbs Functional Status No Functional Status data History of Present Illness Symptom Name Status Result Effective Date Notes Location-Major on the head 05/02/2018 None Color [...] data Encounters Encounter Performer Location Codes Date (26472) PREV VISIT EST AGE 18-39 Diagnosis: Encounter for general adult medical examination with abnormal findings[ICD10: Z00.01] Diagnosis: Spontaneous ecchymoses[ICD10: R23.3] [facility] CPT-4: 12456 05/02/2018 OFFICE VISIT, NEW - LEVEL 3 Diagnosis: Gastro-esophageal reflux disease without esophagitis[ICD10: K21.9] Diagnosis: Diarrhea, unspecified[ICD10: R19.7] [facility] CPT-4: 08204 05/11/2017 Plan of Care Planned Activity Notes Codes Status Date Visit Plan: Well Adult - pt was [...] as indicated 05/02/2018 Appointment: Michelle Camara WPtel: [facility] (30 min) Complex 05/02/2018 Patient Education: Patient [...] stomach pain. 05/11/2017 Appointment: Michelle Cam[phone] [facility] [facility] 05/11/2017 Patient Education: Patient Medication [...] of stomach upset or stomach pain. . Well Adult - pt was counseled [...]
--- OUTSIDE RECORDS SUMMARY | 2018-07-28 07:00 | XMS REPORT | CCD ---
Author Author Michelle Camara MD, [facility] Address [address] [place] [address] Phone Care Team Providers Care Boiler/Chiller Technician Name Role Phone PP Unavailable CCM Unavailable Summary Purpose Interface Exchange Insurance Providers Payer name Policy type / Coverage type Covered libertarian ID Effective Begin Date Effective End Date Blue Cross Blue Shield [facility] Blue Cross/Blue Shield [id number] 2017 Unknown Family history Father Diagnosis Age At Onset Diabetes mellitus Type 2 Unknown Hypertension Unknown Hyperlipidemia Unknown Social History Social History Element Codes Description Effective Dates Marital status Unknown jazlyn 05/11/2017 Number of children Unknown 0 3 step kids 05/11/[address]: 776126520 Never smoker 05/11/2017 Alcohol history Unknown occasionally [...] Fill Instructions Carafate 1 gram tablet RxNorm: 583386 1 Tablet(s) PO AC & HS as needed 12/26/2017 01/04/2018 Inactive Prilosec OTC 20 mg tablet,delayed release RxNorm: 733132 1 Tablet(s) PO daily 05/12/2017 No Stop Date Active Carafate 1 gram tablet RxNorm: 278089 1 Tablet(s) PO AC & HS as needed 05/12/2017 05/21/2017 Inactive Carafate 1 gram tablet RxNorm: 443684 1 Tablet(s) PO AC & HS as [...] Observation Code Item Item Code Result Date Tsh Ord6 TSH (3rd IS) 1.15 uIU/mL 05/02/2018 Comp Metabolic Qzy396 NA 137 mEq/L 05/02/2018 Comp Metabolic Ehi688 K 4.2 mEq/L 05/02/2018 Comp Metabolic Lia532 CL 105 mEq/L 05/02/2018 Comp Metabolic Qce540 CO2 27.0 mEq/L 05/02/2018 Comp Metabolic Kgr345 ANION GAP 9 05/02/2018 Comp Metabolic Srn116 GLUCOSE 96 mg/dL 05/02/2018 Comp Metabolic Maj161 Creat 0.6 mg/dL 05/02/2018 Comp Metabolic Eoa239 eGFR 113 ml/min/1.73m2 05/02/2018 Comp Metabolic Dna614 BUN 8 mg/dL 05/02/2018 Comp Metabolic Dcc518 B/C Ratio 12.5 Ratio 05/02/2018 Comp Metabolic Zvk994 CALCIUM 9.3 mg/dL 05/02/2018 Comp Metabolic Yst685 ALK PHOS 50 U/L 05/02/2018 Comp Metabolic Zmi548 AST(SGOT) 14 U/L 05/02/2018 Comp Metabolic Eye887 ALT(SGPT) 10 U/L 05/02/2018 Comp Metabolic Osd335 BILI T 0.8 mg/dL 05/02/2018 Comp Metabolic Pgb139 ALBUMIN 4.1 g/dL 05/02/2018 Comp Metabolic Ffh595 TPRO 6.8 g/dL 05/02/2018 Comp Metabolic Fpu125 GLOB 2.7 g/dL 05/02/2018 Comp Metabolic Alq933 A/G Ratio 1.5 Ratio 05/02/2018 Comp Metabolic Lgc281 Osmo 272 mOsmo 05/02/2018 Cbc With Differential [...] 31.6 pg 05/02/2018 Cbc With Differential Ord2 [place]% 6.7 % 05/02/2018 Cbc With Differential Ord2 MCHC 34.4 pg 05/02/2018 Cbc With Differential Ord2 Eos% 0.6 % 05/02/2018 Cbc With Differential Ord2 PLT 209 K/ul 05/02/2018 Cbc With Differential Ord2 Baso% 0.2 % 05/02/2018 Cbc With Differential Ord2 Neut ABS# 2.74 K/ul 05/02/2018 Cbc With Differential Ord2 RDW 12.6 % 05/02/2018 Cbc With Differential Ord2 Lymph ABS# 1.80 K/ul 05/02/2018 Cbc With Differential Ord2 [place] ABS# 0.3 K/ul 05/02/2018 Cbc With Differential [...] Code : 8480-6 BMI: 24.4 Code : 03164-0 Heart Rate 1 : 81 bpm Height: 5'1" SpO2: 99% Weight: 129 lbs 05/11/2017 Blood Pressure 1: 110/62 Code : 8480-6 BMI: 22.7 Code : 58326-4 Heart Rate 1 : 98 bpm Height: [...] data Encounters Encounter Performer Location Codes Date (95203) PREV VISIT EST AGE 18-39 Diagnosis: Encounter for general adult medical examination with abnormal findings[ICD10: Z00.01] Diagnosis: Spontaneous ecchymoses[ICD10: R23.3] [facility] CPT-4: 24397 05/02/2018 OFFICE VISIT, NEW - LEVEL 3 Diagnosis: Gastro-esophageal reflux disease without esophagitis[ICD10: K21.9] Diagnosis: Diarrhea, unspecified[ICD10: R19.7] [facility] CPT-4: 36959 05/11/2017 Plan of Care Planned Activity Notes [...] as indicated 05/02/2018 Appointment: Michelle Camara WPtel: [address] [place], [place] [phone] (30 min) [facility] 05/02/2018 Patient Education: Patient Medication Summary Completed [...] pain. 05/11/2017 Appointment: Michelle Camara [facility]Ptel: [phone] [facility] [facility] 05/11/2017 Patient Education: Patient Medication [...]
--- OUTSIDE RECORDS SUMMARY | 2018-07-28 07:00 | XMS REPORT | CCD ---
Author Author Michelle Camara MD, [facility] Address [address] [place] [address] Phone Care Team Providers Care Merchandising Execution Associate Name Role Phone PP Unavailable CCM Unavailable Summary Purpose Interface Exchange Insurance Providers Payer name Policy type / Coverage type Covered alliance party ID Effective Begin Date Effective End Date Blue Cross Blue Shield [facility] Blue Cross/Blue Shield [id number] 2017 Unknown Family history Father Diagnosis Age At Onset Diabetes mellitus Type 2 Unknown Hypertension Unknown Hyperlipidemia Unknown Social History Social History Element Codes Description Effective Dates Marital status Unknown jazlyn 05/11/2017 Number of children Unknown 0 3 step kids 05/11/[address]: 672634455 Never smoker 05/11/2017 Alcohol history Unknown occasionally [...] Fill Instructions Carafate 1 gram tablet RxNorm: 149343 1 Tablet(s) PO AC & HS as needed 12/26/2017 01/04/2018 Inactive Prilosec OTC 20 mg tablet,delayed release RxNorm: 196424 1 Tablet(s) PO daily 05/12/2017 No Stop Date Active Carafate 1 gram tablet RxNorm: 402097 1 Tablet(s) PO AC & HS as needed 05/12/2017 05/21/2017 Inactive Carafate 1 gram tablet RxNorm: 228675 1 Tablet(s) PO AC & HS as [...] Notes rash 05/02/2018 abdominal pain 05/11/2017 Results No Results data [...] Code : 8480-6 BMI: 24.4 Code : 91318-5 Heart Rate 1 : 81 bpm Height: 5'1" SpO2: 99% Weight: 129 lbs 05/11/2017 Blood Pressure 1: 110/62 Code : 8480-6 BMI: 22.7 Code : 42245-3 Heart Rate 1 : 98 bpm Height: [...] data Encounters Encounter Performer Location Codes Date (24054) PREV VISIT EST AGE 18-39 Diagnosis: Encounter for general adult medical examination with abnormal findings[ICD10: Z00.01] Diagnosis: Spontaneous ecchymoses[ICD10: R23.3] [facility] CPT-4: 81958 05/02/2018 OFFICE VISIT, NEW - LEVEL 3 Diagnosis: Gastro-esophageal reflux disease without esophagitis[ICD10: K21.9] Diagnosis: Diarrhea, unspecified[ICD10: R19.7] [facility] CPT-4: 92372 05/11/2017 Plan of Care Planned Activity Notes [...] check labs and treat as indicated 05/02/2018 Patient Education: Patient Medication Summary Completed 05/02/2018 Care Plan: Comp Metabolic Pending 05/02/2018 Care Plan: Cbc With Differential Pending 05/02/2018 Care Plan: Tsh Pending 05/02/2018 Visit Plan: Esophageal Reflux - the [...] stomach pain. 05/11/2017 Appointment: Michelle Camara WPtel: [address] [place], [place] [address] New Patient 05/11/2017 Patient Education: Patient Medication [...]
--- OUTSIDE RECORDS SUMMARY | 2018-07-28 07:01 | XMS REPORT | CCD ---
Author Author Michelle Camara Organization Linda Corado MD, [facility] Address [address] [place] [address] Phone Care Team Providers Care Water Ski Assembler Name Role Phone PP Unavailable CCM Unavailable Summary Purpose Interface Exchange Insurance Providers Payer name Policy type / Coverage type Covered alliance party ID Effective Begin Date Effective End Date Blue Cross Blue [facility] Blue Cross/Blue [facility] [id number] 2017 Unknown Family history Father Diagnosis Age At Onset Diabetes mellitus Type 2 Unknown Hypertension Unknown Hyperlipidemia Unknown Social History Social History Element Codes Description Effective Dates Marital status Unknown jazlyn 05/11/2017 Number of children Unknown 0 3 step kids 05/11/[address]: 896073179 Never smoker 05/11/2017 Alcohol history Unknown occasionally [...] Prilosec OTC 20 mg tablet,delayed release RxNorm: 490272 1 Tablet(s) PO daily 05/12/2017 No Stop Date Active Carafate 1 gram tablet RxNorm: 126672 1 Tablet(s) PO AC & HS as [...] Code : 8480-6 BMI: 22.7 Code : 06714-7 Heart Rate 1 : 98 bpm Height: [...] unspecified[ICD10: R19.7] [facility] CPT-4: 74519 05/11/2017 Plan of Care Planned Activity Notes [...] stomach pain. 05/11/2017 Appointment: Michelle Camara WPtel: [address] [place], [place] [id number] New Patient 05/11/2017 Patient Education: Patient Medication [...]
--- OUTSIDE RECORDS SUMMARY | 2018-07-28 07:01 | XMS REPORT | Continuity of Care Document ---
Author Organization Unknown Address Unknown Allergies Active Description Code Type Severity Reaction Onset Reported/Identified Relationship to Patient Clinical Status Yes No Known Drug Allergies [id number] Drug Allergy Unknown N/A 07/22/2015 Medications There is no data. Problems Date Dx Coded Attending Type Code Diagnosis Diagnosed By 07/23/2015 JOHNSON LOCK DO Ot N97.9 FEMALE INFERTILITY, UNSPECIFIED 08/06/2015 JOHNSON LOCK DO Ot N97.9 FEMALE INFERTILITY, UNSPECIFIED 06/28/2018 JOHNSON LOCK DO Ot N97.9 FEMALE INFERTILITY, UNSPECIFIED 06/30/2018 JOHNSON LOCK DO Ot N97.9 FEMALE INFERTILITY, UNSPECIFIED 07/03/2018 BRIAN GARVIN MD Ot R10.11 RIGHT UPPER QUADRANT PAIN 07/03/2018 BRIAN GARVIN MD Ot R11.2 NAUSEA WITH VOMITING, UNSPECIFIED 07/03/2018 BRIAN GARVIN MD Ot R16.0 HEPATOMEGALY, NOT ELSEWHERE CLASSIFIED 07/10/2018 JOHNSON LOCK DO Ot N97.9 FEMALE INFERTILITY, UNSPECIFIED 07/10/2018 BRIAN GARVIN MD Ot R10.11 RIGHT UPPER QUADRANT PAIN 07/10/2018 BRIAN GARVIN MD Ot R11.2 NAUSEA WITH VOMITING, UNSPECIFIED 07/10/2018 BRIAN GARVIN MD Ot R16.0 HEPATOMEGALY, NOT ELSEWHERE CLASSIFIED 07/11/2018 BRIAN GARVIN MD Ot R10.11 RIGHT UPPER QUADRANT PAIN 07/11/2018 BRIAN GARVIN MD Ot R11.2 NAUSEA WITH VOMITING, UNSPECIFIED 07/13/2018 JOHNSON LOCK DO Ot N97.9 FEMALE INFERTILITY, UNSPECIFIED 07/13/2018 BRIAN GARVIN MD Ot R10.11 RIGHT UPPER QUADRANT PAIN 07/13/2018 BRIAN GARVIN MD Ot R11.2 NAUSEA WITH VOMITING, UNSPECIFIED 07/13/2018 BRIAN GARVIN MD Ot R16.0 HEPATOMEGALY, NOT ELSEWHERE CLASSIFIED 07/13/2018 BRIAN GARVIN MD Ot R10.11 RIGHT UPPER QUADRANT PAIN 07/13/2018 BRIAN GARIVN MD Ot R11.2 NAUSEA WITH VOMITING, UNSPECIFIED 07/17/2018 BRIAN GARVIN MD Ot R10.11 RIGHT UPPER QUADRANT PAIN 07/17/2018 BRIAN GARVIN MD Ot R11.2 NAUSEA WITH VOMITING, UNSPECIFIED 07/17/2018 BRIAN GARVIN MD Ot R16.0 HEPATOMEGALY, NOT ELSEWHERE CLASSIFIED Procedures There is no data. Results There is no data. Encounters ACCT No. Visit Date/Time Discharge Status Pt. Type Provider Facility Loc./Unit Complaint [id number] 07/10/2018 09:21:00 07/10/2018 23:59:59 CLS Outpatient BRIAN GARVIN MD [facility] CARD RUQ PAIN,N/V [id number] 06/30/2018 08:20:00 06/30/2018 23:59:59 CLS Outpatient BRIAN GARVIN MD [facility] RAD RUQ PAIN,N/V [id number] 07/22/2015 14:30:00 07/22/2015 23:59:59 CLS Outpatient JOHNSON LOCK DO [facility] RAD FEMALE INFERTILITY [id number] 07/28/2018 12:00:00 PEN Preadmit BRIAN GARVIN MD [facility] SDC BILIARY DYSKENESIA, REFLUX [id number] 05/11/2017 14:37:59 05/11/2017 23:59:59 CLS Outpatient
--- OUTSIDE RECORDS SUMMARY | 2018-07-28 07:01 | XMS REPORT ---
Author Author LEONORA GUERRERO Organization [employer] Address Unknown Phone Unavailable Care Team Providers Care Assistant Shift Supervisor Name Role Phone LEONORA GUERRERO CP Unavailable Allergies, Adverse Reactions, Alerts Substance Reaction Event Type Guaifenesin Info Not Available Drug Allergy Problems Problem Type Condition Code Onset Dates Condition Status Assessment Acute sinusitis, unspecified J01.90 Active Assessment Sore throat J02.9 Active Medications Medication Code System Code Instructions Start Date End Date Status Dosage Zyrtec Allergy [facility] [address]-34 10 mg Orally Once a day July 18, 2015 August 01, 2015 1 tablet as needed Fluticasone Propionate [facility] [address]-45 50 MCG/ACT Nasally Once a day July 18, 2015 1 spray in each nostril Procedures Procedure Coding System Code Date Office Visit, New Pt., Level 2 CPT-4 33359 July 18, 2015 STREP A ASSAY W/OPTIC CPT-4 98422 July 18, 2015 Vital Signs Date/Time: July 18, 2015 Temperature 98.6 F Weight 124.6 lbs Height 61 in BMI 23.54 Index Blood Pressure Diastolic 66 mmHg Blood Pressure Systolic 112 mmHg Cardiac Monitoring Heart Rate 76 bpm Results Name Result Date Reference Range Unit Abnormality Flag STREP A (IN HOUSE) ----STREP A Negative [id number] ----Control + [id number] ----Lot # [id number] ----Exp date [id number] Summary Purpose [employer] Submission
--- OUTSIDE RECORDS SUMMARY | 2018-07-28 07:01 | XMS REPORT | CCD ---
Author Author Michelle Camara Organization Linda Corado MD, [facility] Address [address] [place] [address] Phone Care Team Providers Care Decorator Consultant Name Role Phone PP Unavailable CCM Unavailable Summary Purpose Interface Exchange Insurance Providers Payer name Policy type / Coverage type Covered alliance party ID Effective Begin Date Effective End Date Blue Cross Blue [facility] Blue Cross/Blue [employer] [id number] 2017 Unknown Family history Father Diagnosis Age At Onset Diabetes mellitus Type 2 Unknown Hypertension Unknown Hyperlipidemia Unknown Social History Social History Element Codes Description Effective Dates Marital status Unknown jazlyn 05/11/2017 Number of children Unknown 0 3 step kids 05/11/[address]: 236504903 Never smoker 05/11/2017 Alcohol history Unknown occasionally [...] Prilosec OTC 20 mg tablet,delayed release RxNorm: 975544 1 Tablet(s) PO daily 05/12/2017 No Stop Date Active Carafate 1 gram tablet RxNorm: 611780 1 Tablet(s) PO AC & HS as needed 05/12/2017 05/21/2017 Active Carafate 1 gram tablet RxNorm: 040781 1 Tablet(s) PO AC & HS as [...] Code : 8480-6 BMI: 22.7 Code : 05597-2 Heart Rate 1 : 98 bpm Height: [...] Encounter Performer Location Codes Date OFFICE VISIT, [facility] - LEVEL 3 Diagnosis: Gastro-esophageal reflux disease without esophagitis[ICD10: K21.9] Diagnosis: Diarrhea, unspecified[ICD10: R19.7] Michelle Corado MD, [facility] CPT-4: 72263 05/11/2017 Plan of Care Planned Activity Notes [...] stomach pain. 05/11/2017 Appointment: Michelle Camara WPtel: [address] [place], [place] [phone] [place] New Patient 05/11/2017 Patient Education: Patient Medication [...]
[2018-07-28] MEDS ORDERED: ceFAZolin INJECTION 1,000 MG in WATER (STERILE) FOR INJECTION 10 ML IV ONE (07:15)
[2018-07-28] MEDS ORDERED: BUP/EPI 0.5% 1:200,000 (SENSORCAINE) 30 ML VIAL ONE (07:27)
[2018-07-28] MEDS ORDERED: MIDAZOLAM 2 MG/2 ML (VERSED) VIAL IV ONE (07:30)
[2018-07-28] MEDS: LACTATED RINGERS 1,000 ML IV PRN ×3 (07:41→10:50)
[2018-07-28 07:43] LABS: BASOPHILS % (AUTO) 1 % (0-10); EOSINOPHILS % (AUTO) 0 % (0-10); HEMATOCRIT 41 % (35-52); HEMOGLOBIN 14.5 G/DL (11.5-16.0); LYMPHOCYTES # (AUTO) 1.6 X 10^3 (1.0-4.0); LYMPHOCYTES % (AUTO) 34 % (12-44); MEAN CORPUSCULAR HEMOGLOBIN 31 PG (25-34); MEAN CORPUSCULAR HGB CONC 36 G/DL (32-36); MEAN CORPUSCULAR VOLUME 89 FL (80-99); MEAN PLATELET VOLUME 11.8 FL (7.4-10.4); MONOCYTES # (AUTO) 0.3 X 10^3 (0.0-1.0); MONOCYTES % (AUTO) 7 % (0-12); NEUTROPHILS # (AUTO) 2.8 X 10^3 (1.8-7.8); NEUTROPHILS % (AUTO) 59 % (42-75); PLATELET COUNT 178 10^3/uL (130-400); RED CELL DISTRIBUTION WIDTH 12.5 % (10.0-14.5); WHITE BLOOD COUNT 4.8 10^3/uL (4.3-11.0)
[2018-07-28] MEDS ORDERED: MIDAZOLAM 2 MG/2 ML (VERSED) VIAL ONE ×2 (08:21→08:36)
[2018-07-28] MEDS ORDERED: SEVOFLURANE (ULTANE) 15 ML INHAL SOLN ONE ×4 (08:23→10:08)
[2018-07-28] MEDS ORDERED: GLYCOPYRROLATE 0.2 MG/ML (ROBINUL) 2 ML VIAL ONE (08:23)
[2018-07-28] MEDS ORDERED: fentaNYL INJECTION 100 MCG/2 ML AMP ONE ×2 (08:23→09:31)
[2018-07-28] MEDS ORDERED: DEXAMETHASONE 10 MG/ML (DECADRON) 1 ML VIAL ONE (08:23)
[2018-07-28] MEDS ORDERED: proPOfol 200 MG/20 ML (DIPRIVAN) VIAL IV ONE (08:23)
[2018-07-28] MEDS ORDERED: ROCURONIUM 10 MG/ML 5 ML SYRINGE IV ONE (08:23)
[2018-07-28] MEDS ORDERED: ONDANSETRON 4 MG/2 ML (SDV) Z0FRAN ONE ×2 (08:23→10:41)
[2018-07-28] MEDS ORDERED: LIDOCAINE PF 2% 5 ML (XYLOCAINE) VIAL ONE (08:23)
[2018-07-28] MEDS ORDERED: NEOSTIGMINE 1 MG/ML 5 ML SYRINGE ONE (08:23)
--- NOTE | 2018-07-28 10:15 | Progress Note-Pre Operative ---
Pre-Operative Progress Note H&P Reviewed The H&P was reviewed, patient examined and no changes noted. Date Seen by Provider: July 28, 2018 Time Seen by Provider: 08:00 Date H&P Reviewed: July 28, 2018 Time H&P Reviewed: 08:00 Pre-Operative Diagnosis: sx biliary dyskinesia, PUD BRIAN GARVIN MD July 28, 2018 10:15
--- NOTE | 2018-07-28 10:19 | Progress Note-Post Operative ---
Post-Operative Progess Note Surgeon (s)/Rewind Operator (s) Surgeon BRIAN GARVIN MD Rewind Operator: none Pre-Operative Diagnosis sx biliary dyskinesia, PUD Post-Operative Diagnosis biliary dyskinesia, reflux esophagitis(stage 2), small HH(1.5cm), mild-mod gastritis. Procedure & Operative Findings Date of Procedure 07/28/18 Procedure Performed/Findings laparoscopic cholecystectomy. EGD with bx. Anesthesia Type get Estimated Blood Loss Estimated blood loss (mL): minimal Specimens/Packing Specimens Removed gallbladder, ge jxn, antrum BRIAN GARVIN MD July 28, 2018 10:19
--- NOTE | 2018-07-28 10:21 | Discharge Inst-Surgical ---
D/C Lap Instructions-VIRGIE New, Converted, or Re-Newed RX: RX on Chart Follow Up Appt in 2 weeks Activity as tolerated No driving for 24 hours No driving while on pain medications Incentive Spirometry use every 2 hours while awake Regular Diet Symptoms to Report: Fever over 101 degree F, Nausea/Vomiting Infection Signs and Symptoms to report: Increased redness, Foul odor of wound, Increased drainage Bathing instructions: May shower Operative Area Clean/Dry; Keep incision clean/dry If any problems/questions: Contact your physician or go to Emergency Room BRIAN GARVIN MD July 28, 2018 10:21
[2018-07-28] MEDS ORDERED: HYDROmorphone 2 MG/ML VIAL (DILAUDID) IV ONE (10:30)
[2018-07-28] MEDS ORDERED: ONDANSETRON 4 MG/2 ML (SDV) Z0FRAN IVP PRN (10:30)
[2018-07-28] MEDS ORDERED: morphine INJ 10 MG/ML 1ML (SYR OR VIAL) IVP ONE (10:30)
[2018-07-28] MEDS ORDERED: morphine INJ 10 MG/ML 1ML (SYR OR VIAL) ONE (10:46)
[2018-07-28] MEDS ORDERED: HYDR-34 PO (10:59)
--- NOTE | 2018-07-28 11:13 | Anesthesia-General Post-Op ---
General Patient Condition Mental Status/LOC: Same as Preop Cardiovascular: Satisfactory Nausea/Vomiting: Absent Respiratory: Satisfactory Pain: Controlled Complications: Absent Post Op Complications Complications None Follow Up Care/Instructions Patient Instructions None needed. Anesthesia/Patient Condition Patient Condition Patient is doing well, no complaints, stable vital signs, no apparent adverse anesthesia problems. NICOLÁS LEMUS DO July 28, 2018 11:13
[2018-07-28] MEDS ORDERED: PROMETHAZINE INJ 25 MG/ML (PHENERGAN) AMP ONE (11:21)
[2018-07-28] MEDS ORDERED: PROMETHAZINE INJ 25 MG/ML (PHENERGAN) AMP IVP ONE (11:30)
[2018-07-28] MEDS ORDERED: HYDROcodone/APAP 7.5 MG/325 MG (LORTAB, LORCET PLUS) TABLET PO ONE ×2 (12:30→12:31)
--- NOTE | 2018-07-28 21:24 | OPERATIVE REPORT ---
DATE OF SERVICE: 07/28/2018 ATTENDING PRIMARY CARE PHYSICIAN: Dr. Corado. PREOPERATIVE DIAGNOSES: 1. Symptomatic biliary dyskinesia. 2. Peptic ulcer disease. POSTOPERATIVE DIAGNOSES: Symptomatic biliary dyskinesia, reflux esophagitis stage II, small hiatal hernia approximately 1.5 cm in size, mild to moderate gastritis. PROCEDURE PERFORMED: 1. Laparoscopic cholecystectomy. 2. Esophagogastroduodenoscopy with biopsy. SURGEON: Brian Garvin MD. ANESTHESIA: General endotracheal. ESTIMATED BLOOD LOSS: Minimal. FINDINGS: Moderate gallbladder wall with some distention, no inflammation. Reflux esophagitis stage II, small hiatal hernia approximately 1.5 cm in size, mild to moderate gastritis. Pylorus and duodenum appeared normal. No distal obstructions. DISPOSITION: The patient tolerated the procedure well. INDICATIONS: The patient is a 33-year-old female, who has had epigastric as well as right upper abdominal quadrant pain. She initially thought that this was gastritis and has had a peptic ulcer disease in the past, which was treated. She states that new symptoms had developed over time, which includes nausea after eating large meals and this was followed by diarrhea as well. She reports that spicy and greasy foods do make her symptoms worse. An ultrasound was performed that did not show any gallstones; however, she underwent a HIDA scan and with the administration of a Kinevac analogue, she did have reproduction of symptoms. DESCRIPTION OF PROCEDURE: The patient was brought to the operating room, laid supine on the table. After adequate IV pain and sedating medications and general endotracheal intubation, the abdomen was prepped and draped in standard surgical fashion. An area in the left upper abdominal quadrant was then anesthetized using 0.5% Marcaine with epinephrine and a transverse incision made using 15-blade. An #0 silk suture was applied to the medial aspect of the incision for retraction and a Veress needle was inserted with a low opening pressure of 0 mmHg and abdomen was insufflated to 15 mmHg pressure. The Veress needle removed and a 5 mm Xcel trocar placed followed by a 5 mm 45-degree angle laparoscope visualizing the peritoneal cavity. A 4-quadrant abdominal exploration was performed. There was a slightly distended gallbladder, no gallbladder wall inflammation was visualized. The liver, stomach, omentum appeared normal. Under direct visualization, we then proceeded to place a supraumbilical 10 mm port after the skin and peritoneal lining were anesthetized using 0.5% Marcaine with epinephrine and a transverse skin incision made using a 15-blade. In a similar manner, a right upper abdominal quadrant 5 mm port was placed. The patient was then placed in reverse Trendelenburg position as well as placed right side up, left side down. The fundus of the gallbladder was then retracted anteriorly and superiorly. The hepatoduodenal ligament was then opened using blunt dissection as well as electrocautery. The entire critical views of safety was identified including the triangle of Calot as well as the cystic duct and artery as the only two structures going into the gallbladder as well as the cystic plate behind the proximal gallbladder. A timeout was then taken. The cystic duct and artery were then clipped proximally, distally and cut with EndoShears. The gallbladder was then dissected off the liver bed using electrocautery and hook instrument with visualization of good hemostasis as well as no leaking ducts of Luschka. The gallbladder was removed through the 10 mm port site using an EndoCatch bag. The 10 mm port site fascia and peritoneum were then closed under direct visualization using a Ernesto-Lamine device and #0 Vicryl suture. The abdomen was then desufflated and remaining ports removed. All skin incisions were closed using 4-0 Monocryl running subcuticular sutures. Wounds were then cleaned and covered with Dermabond. The patient tolerated this portion of the procedure well. We will recommend a slow incorporating fat in her diet and we will start her on IV normal pain medication as well as a clear liquid diet. Once she is tolerating clears, has good pain control with oral pain medications and ambulating well, we will discharge home. Under the same anesthesia, we then proceed with the EGD portion of the procedure. The mouthpiece was applied. The endoscope was placed in the mouth, visualizing the pharynx and hypopharyngeal region. Vocal cords, epiglottis and vallecula were identified and appeared to be normal. The endoscope was then gently intubated at the esophageal opening and esophagus was insufflated. The endoscope was then advanced through the first, second and third portion of the esophagus at the level of the GE junction, a reflux esophagitis of stage II identified. There were no ulcers or strictures identified in this region. A biopsy was taken with forceps with visualization of good hemostasis. The endoscope was then advanced in the stomach. The endoscope was retroflexed visualizing a small hiatal hernia approximately 1.5 cm in size. There was also mild to moderate gastritis. No formal ulcerations, polyps or any neoplasms identified. A biopsy was taken of the GE junction to rule out H. pylori with visualization of good hemostasis. Endoscope was then advanced through the pylorus and the first and second portion of duodenum, which appeared normal and no distal obstructions. The patient tolerated this portion of procedure well. We will recommend continued medical management with the necessary lifestyle and diet accommodation including small and more frequent meals, avoidance of eating at night as well as head elevation while lying supine. She also needs to avoid caffeinated beverages, spicy, greasy and acidic foods and continue with her Protonix daily. Job ID: [id number] DocumentID: [id number] Dictated Date: 07/28/2018 10:31:15 Supervisor Poultry Farm Date: 07/28/2018 21:24:10 Dictated By: BRIAN GARVIN MD
== END 2018-07-28 13:10 | disposition home or self-care (01) ==
LOC: SDC 06:52
PROVIDERS: ATTEND Surgery
DX: K81.1 Chronic cholecystitis (principal); K21.0 Gastro-esophageal reflux disease with esophagitis; K44.9 Diaphragmatic hernia without obstruction or gangrene; K29.70 Gastritis, unspecified, without bleeding
CPT/HCPCS: 36415; 84703; 85025; 87081; 94664

== ENCOUNTER → 2020-10-02 | Outpatient (CLI) | payer BC ==
[~2020-10-02] MED LIST changes: +HYDR-34 PO
--- NOTE | 2020-10-02 13:33 | Diagnostic Imaging Report ---
PROCEDURE: US Thyroid. TECHNIQUE: Multiple real-time grayscale images were obtained of the thyroid in various projections. INDICATION: Thyroid nodule. FINDINGS: The right lobe measures approximately 1.5 x 5.3 cm. The left lobe measures 1 x 5 cm. Both lobes are homogeneous in appearance with no solid or cystic mass seen in or adjacent to either lobe. There is no abnormal vascularity. IMPRESSION: No abnormality is seen. Dictated by: Dictated on workstation # [id number]
== END ==
LOC: RAD 09:00
PROVIDERS: ATTEND Nurse Practitioner Family
DX: E04.1 Nontoxic single thyroid nodule (principal)
CPT/HCPCS: 76536